=== PATIENT | female | born 1970 | race Caucasian/White ===

== ENCOUNTER 2016-03-24 22:24 | Observation (INO) | payer OTHER ==
[~2016-03-24] VITALS: Ht 175.3 cm; Wt 129.5 kg
[2016-03-25] VITALS (10 sets, daily range): BP systolic 104–146; RESP 16–20; TEMP 97.8–98.6; Ht 175.3 cm; Wt 129.5 kg
[2016-03-25] MEDS ORDERED: ASPIRIN 81 MG CHEW TAB ONE (00:28)
[2016-03-25] MEDS ORDERED: ACETAMINOPHEN 325 MG TAB PO PRN (01:20)
[2016-03-25] MEDS ORDERED: SALINE FLUSH 10 ML FLUSH PRN (01:20)
[2016-03-25] MEDS ORDERED: ONDANSETRON 4 MG VIAL IV PUSH PRN (01:20)
[2016-03-25] MEDS ORDERED: SODIUM CHLORIDE 0.9% FLUSH BAG 500 ML IV SCH (06:00)
[2016-03-25] MEDS ORDERED: SALINE FLUSH 10 ML FLUSH SCH (08:00)
[2016-03-25] MEDS ORDERED: Aspirin 325 MG TAB PO SCH (09:00)
[2016-03-25] MEDS ORDERED: ENOXAPARIN 40 MG/0.4 ML SYR SUBQ SCH (09:00)
[2016-03-25] MEDS ORDERED: Atorvastatin 40 MG TAB PO SCH (12:35)
[2016-03-25] MEDS ORDERED: CETIRIZINE 10 MG TAB PO PRN (12:35)
[2016-03-25] MEDS ORDERED: Carvedilol 3.125 MG TAB PO SCH (21:00)
[2016-03-26] MEDS ORDERED: LEVOTHYROXINE 0.175 MG TAB PO SCH (07:00)
== END 2016-03-25 13:31 | disposition home or self-care (01) ==
LOC: ENRESERVDT → ENRESERVTM → ER 22:24 → ENPENDDIS 22:25 → EMR 22:25 → PCU2 03-25 01:23
PROVIDERS: ADMIT Hospitalist; ATTEND Family Medicine
CPT/HCPCS: 70450; 70551; 71010; 93005; 94799; 99220; 99239